=== PATIENT | female | born 1990 | race Hispanic/Latino ===

== ENCOUNTER 2018-04-08 09:23 | Emergency (ER) | payer OTHER ==
[~2018-04-08] VITALS: Ht 144.8 cm; Wt 63.5 kg
[~2018-04-08 09:23] MED LIST: KEFLEX500 MG PO
[2018-04-08] MEDS ORDERED: PRENATA CHEWAB1 EACH PO (09:45)
== END 2018-04-08 10:57 | disposition home or self-care (01) ==
LOC: ED 09:23
DX: O99.89 Other specified diseases and conditions complicating pregnancy, childbirth and the puerperium (principal); R10.2 Pelvic and perineal pain; Z3A.12 12 weeks gestation of pregnancy
CPT/HCPCS: 76801; 81001; 99284-25

== ENCOUNTER 2018-10-24 03:09 | Inpatient (IN) | payer OTHER ==
[~2018-10-24] VITALS: Ht 149.9 cm; Wt 67.0 kg
[~2018-10-24 03:09] MED LIST changes: +PRENATA CHEWAB1 EACH PO
--- NOTE | 2018-10-24 04:25 | PR ---
[facility] [address] [facility] [place], [place] [address] Signed Progress Notes IP Datetime Report Generated by CPN: 10/24/2018 04:24 PROGRESS NOTES: [id number] Impression: Normal progression of labor Procedures: Artificial ROM Plan: Continue present management; Anticipate Vaginal Delivery VITAL SIGNS: [id number] Vital Signs: Reviewed; Within Normal Limits EXAM: [id number] Dilatation: 9.0 Effacement: 90 Station: -2 Uterine Contractions: every 3-4 min MEMBRANES: [id number] Membrane Status: Intact ROM Note: Moderate clear fluid Fetus A: [id number] FHR Baseline: 130 Variability: Moderate 6-25bpm Accelerations: 15X15 Presentation: Vertex Fetus B: [id number] Signing Physician: Sulaiman Brooks MD Copies: ~ *Electronically Signed* 10/24/18 0424 SULAIMAN BROOKS MD PATIENT NAME: JOHNIE STEPHENSONROSIE PROGRESS NOTE DATE OF : [birth year] PHYSICIAN: SULAIMAN BROOKS MD RPT #: [id number] REPORT IS CONFIDENTIAL AND NOT TO BE RELEASED WITHOUT AUTHORIZATION
--- NOTE | 2018-10-24 06:24 | NUR ---
10/24/18 0624 NormaDena 0606- PT ARRIVES TO [facility] ROOM #101. UPON ARRIVAL TO ROOM PT REPORTS SHE IS NAUSEOUS. EMESIS BAG GIVEN. PT VOMITS YELLOW AND GREEN INTO THE EMESIS BAG. PT REPORTS THE NAUSEA TO GO AWAY AFTER THIS. PT DENIES PAIN. IV INFUSING WELL WITH 20 UNITS OF PITOCIN INTO RIGHT HAND. PT'S AND BABY AT THE BEDSIDE.
--- NOTE | 2018-10-24 06:39 | PR ---
[facility] [address] [place], [place] [address] Signed Progress Notes IP Datetime Report Generated by CPSebastien: 10/24/2018 06:39 PROGRESS NOTES: [id number] Impression: Non-reassuring heart rate Procedures: Artificial ROM Plan: Deliver- Section Informed Consent Obtain: Section Delivery VITAL SIGNS: [id number] Vital Signs: Reviewed; Within Normal Limits EXAM: [id number] Dilatation: 10.0 Effacement: 100 Station: -1 Uterine Contractions: every 2-3 minutes MEMBRANES: [id number] Membrane Status: Intact Amniotic Fluid Color: Clear ROM Note: Moderate clear fluid Comments: Late entry: pushing well, but bradycardia to 60's-80's for 7-9 minutes. Tried left side, right side, hands-knees, continued pushing but minimal descent. Do not feel vaginal delivery imminent enough to continue attempting vaginal delivery. Code-4 C/S called. Discussed with patient; discussed risks/benefits, consent signed, questions answered. Will take patient to OR to prep for C/S while OR/Anesthesia on way. SQ Terbutaline given in OR Fetus A: [id number] FHR Baseline: 135 Variability: Minimal - Undetectable to <5bpm Accelerations: 15X15 Decelerations: Late Presentation: Vertex Fetus B: [id number] Signing Physician: Sulaiman Vasquez MD Copies: ~ *Electronically Signed* 10/24/18 0639 SULAIMAN VASQUEZ MD PATIENT NAME: JOHNIE MONROYROSIE HINOJOSA PROGRESS NOTE DATE OF : 89 PHYSICIAN: SULAIMAN VASQUEZ MD RPT #: [id number] REPORT IS CONFIDENTIAL AND NOT TO BE RELEASED WITHOUT AUTHORIZATION
--- NOTE | 2018-10-25 12:41 | OR ---
[facility] [address] [place], [place] [address] Signed DATE OF OPERATION: 10/24/2018 SURGEON: Sulaiman Vasquez MD PREOPERATIVE DIAGNOSES: 1. bradycardia. 2. Term labor. POSTOPERATIVE DIAGNOSES: 1. bradycardia. 2. Term labor. 3. Tight nuchal cord. PROCEDURE: Emergency low transverse segment section. Delivery of live male . CREDIT CARD CLERK: Dr. Julien. ANESTHESIA: Spinal. ESTIMATED BLOOD LOSS: 500 mL. COMPLICATIONS: None. DRAINS: Avila to bladder. FINDINGS: Live male infant. Apgars 7 and 9. Weight 5 pounds 11 ounces. There was a tight nuchal cord x1. Normal uterus. Normal tubes and ovaries bilateral. DESCRIPTION OF PROCEDURE: The patient was brought to the operating room and placed in supine position. After adequate spinal anesthesia was obtained, the patient was prepped and draped in usual sterile fashion. Avila catheter was placed in the bladder. A Pfannenstiel skin incision was made with a scalpel and extended through the subcutaneous tissue with a Electronically Signed By: SULAIMAN VASQUEZ MD 10/25/18 1241 PATIENT NAME: LUH MENAELI OPERATIVE REPORT DATE OF : 89 REPORT #: [id number] PHYSICIAN: SULAIMAN VASQUEZ MD PCP: GREGOR ELKINS MD REPORT IS CONFIDENTIAL AND NOT TO BE RELEASED WITHOUT AUTHORIZATION [facility] [address] [place], [place] [address] Signed scalpel. Fascia was nicked with scalpel and extended in transverse fashion using curved scissors. The underlying abdominal musculature was bluntly and sharply from the fascia above and below the incision. The abdominal musculature was bluntly and sharply along the midline. The peritoneum was grasped, hemostats elevated, nicked with curved Thakur and extended in vertical fashion using finger dissection. The Carlos self-retaining retractor was inserted into the incision and tightened in place. The lower uterine segment was identified and a small incision made with a scalpel in the midline of the lower uterine segment. Finger dissection was used to extend the incision in transverse fashion. Clear fluid came from the incision. The infant is noted to be in vertex SY presentation. Infant head was wedged in the pelvis and was delivered through the incision. Nuchal cord was around the neck once that was fairly tight. After removal of the nuchal cord, the rest of the was easily delivered from the incision. The cord doubly clamped and cut, and the passed off table in good condition, awaiting recovery advocate. A sample of cord was taken for cord gases and then the placenta manually removed. Uterine cavity explored with a lap pad to remove any retained membranes. An angle stitch of 0 Monocryl was placed at one end of the incision and running locking stitch of 0 Monocryl starting at the other end to close the incision. A 2nd running stitch of 0 Monocryl was used to imbricate the 1st layer. Good hemostasis was obtained. There was slight oozing in the left angle after irrigation. No definite bleeding spots were identified except for one, which was cauterized with the Bovie. To help with hemostasis, Evicel was placed in the left angle and the rest along the incision. Good hemostasis was then obtained. The Carlos self-retaining retractor was removed and sheet of ACell placed over lower uterine segment to help with healing. The anterior wall peritoneum was closed using running stitch of 2-0 Vicryl suture. The abdominal musculature was reapproximated using interrupted stitches of 0 Vicryl suture. Abdominal wall incision was irrigated, suctioned, and examined. Any bleeding spots cauterized with the Bovie. Fascia was closed using two running stitch of 0 Vicryl suture meeting in the midline. Subcutaneous tissue was irrigated, suctioned, and examined. Any bleeding spots cauterized with the Bovie. Subcutaneous tissue was then closed using interrupted stitches of 3-0 Vicryl suture and the skin reapproximated using skin clips. The patient tolerated the procedure well, went to recovery room in good condition. The sponge, needle, and instrument count correct at the end of procedure. Sulaiman Vasquez MD MJB/MODL /[id number] Electronically Signed By: SULAIMAN VASQUEZ MD 10/25/18 1241 PATIENT NAME: ROSIE MENA OPERATIVE REPORT DATE OF : 89 REPORT #: [id number] PHYSICIAN: SULAIMAN VASQUEZ MD PCP: GREGOR ELKINS MD REPORT IS CONFIDENTIAL AND NOT TO BE RELEASED WITHOUT AUTHORIZATION [address] [address] Signed Copies: ~ Electronically Signed By: SULAIMAN VASQUEZ MD 10/25/18 1241 PATIENT NAME: JOHNIE MONROYROSIE HINOJOSA OPERATIVE REPORT DATE OF : 89 REPORT #: [id number] PHYSICIAN: SULAIMAN VASQUEZ MD PCP: GREGOR ELKINS MD REPORT IS CONFIDENTIAL AND NOT TO BE RELEASED WITHOUT AUTHORIZATION
--- NOTE | 2018-10-25 12:54 | PR ---
[facility] [address] [facility] [place], [place] [address] Signed PP Progress Notes Datetime Report Generated by CPN: 10/25/2018 12:54 SUBJECTIVE: [id number] Pain: Within normal limits Nausea/Vomiting: Denies Vital Signs: [id number] Vital Signs: Reviewed; Within Normal Limits Notable Details: PP Hgb/Hct = 10.5/30.9 EXAM: [id number] Abdomen/Uterus: Normal Lochia: Normal Extremities: Normal Incision: Normal IMPRESSION/PLAN/PROCEDURES: [id number] Impression: Normal progression Plan: Continue present management Procedures: None Progress Notes: Doing well, without complaint. Voiding without diffculty. Increase diet and activity as tolerated. Signing Physician: Sulaiman Brooks MD Copies: ~ *Electronically Signed* 10/25/18 1254 SULAIMAN BROOKS MD PATIENT NAME: LUH MENAELI PROGRESS NOTE DATE OF : 89 PHYSICIAN: SULAIMAN BROOKS MD RPT #: [id number] REPORT IS CONFIDENTIAL AND NOT TO BE RELEASED WITHOUT AUTHORIZATION
== END 2018-10-27 11:10 | disposition home or self-care (01) | DRG 788 ==
LOC: FBCO 03:09 → FBC 03:25
PROVIDERS: ADMIT General Practice
PROC: 10907ZC Drainage of Amniotic Fluid, Therapeutic from Products of Conception, Via Natural or Artificial Opening (ICD-10-PCS; 2018-10-24)
PROC: 10D00Z1 Extraction of Products of Conception, Low, Open Approach (ICD-10-PCS; principal; 2018-10-24 05:28)
DX: O76 Abnormality in fetal heart rate and rhythm complicating labor and delivery (principal); O69.1XX0 Labor and delivery complicated by cord around neck, with compression, not applicable or unspecified; Z3A.40 40 weeks gestation of pregnancy; Z37.0 Single live birth
CPT/HCPCS: 01961; 36415; 82803; 85027; J2270; J2274; J2370; J2590; J7120